=== PATIENT | male | born 1960 | race Two or more races ===

== ENCOUNTER 2023-04-30 14:07 | Inpatient (IN) | payer MEDICARE, OTHER ==
[~2023-04-30] VITALS: Ht 177.8 cm; Wt 91.2 kg
[2023-04-30 15:17] LABS: BASOPHILS # (AUTO) 0.1 K/uL (0.0-0.2); EOSINOPHILS % (AUTO) 0.2 % (0.0-6.0); HEMATOCRIT 37 % (39-51); HEMOGLOBIN 12.3 g/dL (13.5-17.5); LYMPHOCYTES # (AUTO) 1.9 K/uL (0.8-4.8); LYMPHOCYTES % (AUTO) 28.6 % (20.0-44.0); MEAN CORPUSCULAR HEMOGLOBIN 30 PG (26.0-33.0); MEAN CORPUSCULAR HGB CONC 33 g/dl (31.0-36.0); MEAN CORPUSCULAR VOLUME 90 fL (80-96); MONOCYTES # (AUTO) 0.6 K/uL (0.1-1.30); MONOCYTES % (AUTO) 9.1 % (2.0-12.0); NEUTROPHILS % (AUTO) 61.1 % (43.0-81.0); PLATELET COUNT (AUTO) 338 K/uL (150-450); RED CELL DISTRIBUTION WIDTH 13.2 % (11.5-15.0); WHITE BLOOD COUNT (AUTO) 6.5 K/uL (4.3-11.0)
[2023-04-30 15:24] LABS: CALCIUM, SERUM 9.2 mg/dL (8.5-10.1); CARBON DIOXIDE 22 mmol/L (21-32); CHLORIDE 98 mmol/L (98-107); CREATININE 0.8 mg/dL (0.6-1.3); GLUCOSE 129 mg/dL (74-106); POTASSIUM 4.2 mmol/L (3.5-5.1); SODIUM SERUM 134 mmol/L (136-145); UREA NITROGEN, BLOOD 7 mg/dL (7-18)
[2023-04-30 15:29] LABS: ALANINE AMINOTRANSFERASE 25 U/L (12-78); ALBUMIN 3.6 g/dL (3.4-5.0); ALKALINE PHOSPHATASE 129 U/L (46-116); ASPARTATE AMINOTRANSFERASE 22 U/L (15-37); BILIRUBIN,DIRECT 0.1 mg/dL (0.0-0.2); BILIRUBIN,TOTAL 0.2 mg/dL (0.2-1.0); SALICYLATE 3.1 mg/dL (2.8-20.0)
[2023-04-30 15:40] LABS: ACETAMINOPHEN <10 ug/ml (10-30)
[2023-04-30 15:41] LABS: ALCOHOL, BLOOD < 3 mg/dL (0-10)
[2023-04-30 15:46] LABS: AMPHETAMINE, URINE NEGATIVE (NEGATIVE); BARBITURATE, URINE NEGATIVE (NEGATIVE); BENZODIAZEPINE, URINE NEGATIVE (NEGATIVE); CANNABINOID, URINE NEGATIVE (NEGATIVE); COCCAINE, URINE NEGATIVE (NEGATIVE); OPIATE, URINE NEGATIVE (NEGATIVE); PHENCYCLIDINE SCREEN,URINE NEGATIVE (NEGATIVE)
[2023-04-30 16:01] LABS: APPEARANCE,URINE CLEAR (CLEAR); BILIRUBIN,URINE 1+ (NEGATIVE); BLOOD, URINE NEGATIVE Ery/uL (NEGATIVE); COLOR,URINE YELLOW (YELLOW); KETONES,URINE TRACE mg/dL (NEGATIVE); LEUKOCYTE ESTERASE ,URINE NEGATIVE (NEGATIVE); NITRITE, URINE NEGATIVE (NEGATIVE); PROTEIN,URINE 3+ mg/dl (NEGATIVE); UGLUCOSE NEGATIVE (NEGATIVE)
[2023-04-30 16:07] LABS: ADD URINE CULTURE NO; BACTERIA,URINE None seen /HPF (None Seen); MUCUS,URINE Many /LPF (None Seen); RBC,URINE 0-2 /HPF (0-2); SQUAMOUS EPITHELIAL CELL,UR 0-2 /HPF (None Seen)
[2023-04-30] MEDS ORDERED: METF-442 PO (16:18)
[2023-04-30] MEDS ORDERED: DIVA-76 PO (16:18)
[2023-04-30] MEDS ORDERED: OLAN10TA3 PO (16:18)
[2023-04-30] MEDS ORDERED: PIOG15TA8 PO (16:18)
[2023-04-30] MEDS ORDERED: VENL37.55 PO (16:18)
[2023-04-30] MEDS ORDERED: ALLO100T PO (16:18)
[2023-04-30] MEDS ORDERED: LORA-259 PO (16:18)
[2023-04-30] MEDS ORDERED: METO-357 PO (16:18)
[2023-04-30] MEDS ORDERED: NIFE-57 PO (16:18)
[2023-04-30] MEDS ORDERED: ATOR80TA PO (16:18)
[2023-04-30] MEDS ORDERED: PHEN100C4 PO (16:18)
[2023-04-30 18:12] LABS: CHOLESTEROL 159 mg/dL (<200); HDL CHOLESTEROL 47 mg/dL (40-60); LDL 81 mg/dL (0-99); TRIGLYCERIDES 80 mg/dL (30-150)
[2023-04-30 21:30] VITALS: BP 123/78; TEMP 98; O2SAT 98
[2023-04-30] MEDS ORDERED: LORAZEPAM 0.5 MG TABLET PO PRN (21:30)
[2023-04-30] MEDS ORDERED: BLOOD SUGAR DIAGNOSTIC 1 EACH STRIP IN ONE (21:30)
[2023-04-30] MEDS ORDERED: MAG HYDROX/AL HYDROX/SIMETH 30 ML UDC PO PRN (21:30)
[2023-04-30] MEDS ORDERED: MAGNESIUM HYDROXIDE 30 ML UDC PO PRN (21:30)
[2023-04-30] MEDS ORDERED: ACETAMINOPHEN 325 MG TABLET PO PRN (21:30)
[2023-04-30] MEDS ORDERED: ATORVASTATIN 40 MG TABLET PO SCH (22:00)
[2023-04-30] MEDS: TEMAZEPAM 7.5 MG CAPSULE PO PRN (23:01)
[2023-05-01 06:43] LABS: BASOPHILS % (AUTO) 0.4 % (0.0-2.0); EOSINOPHILS # (AUTO) 0.1 K/uL (0.0-0.7); EOSINOPHILS % (AUTO) 1.2 % (0.0-6.0); HEMATOCRIT 37 % (39-51); HEMOGLOBIN 12.3 g/dL (13.5-17.5); LYMPHOCYTES % (AUTO) 41.5 % (20.0-44.0); MEAN CORPUSCULAR HEMOGLOBIN 30 PG (26.0-33.0); MEAN CORPUSCULAR HGB CONC 33 g/dl (31.0-36.0); MEAN CORPUSCULAR VOLUME 91 fL (80-96); MONOCYTES # (AUTO) 0.7 K/uL (0.1-1.30); MONOCYTES % (AUTO) 9.4 % (2.0-12.0); NEUTROPHILS # (AUTO) 3.4 K/uL (1.8-8.9); NEUTROPHILS % (AUTO) 47.5 % (43.0-81.0); PLATELET COUNT (AUTO) 320 K/uL (150-450); RED BLOOD CELL COUNT(AUTO) 4.05 MIL/uL (4.5-6.0); RED CELL DISTRIBUTION WIDTH 13.6 % (11.5-15.0); WHITE BLOOD COUNT (AUTO) 7.2 K/uL (4.3-11.0)
[2023-05-01 07:14] LABS: ALBUMIN 3.3 g/dL (3.4-5.0); BILIRUBIN,TOTAL 0.2 mg/dL (0.2-1.0); CALCIUM, SERUM 9.1 mg/dL (8.5-10.1); CREATININE 0.6 mg/dL (0.6-1.3); POTASSIUM 4.3 mmol/L (3.5-5.1); TOTAL PROTEIN, SERUM 7.7 g/dL (6.4-8.2)
[2023-05-01 08:00] VITALS: BP 138/85; TEMP 97.8; O2SAT 96
[2023-05-01] MEDS: METOPROLOL SUCCINATE 50 MG TAB.SR.24H PO SCH (08:29)
[2023-05-01] MEDS: ALLOPURINOL 100 MG TABLET PO SCH (08:29)
[2023-05-01] MEDS: PIOGLITAZONE HCL 15 MG TABLET PO SCH (08:30)
[2023-05-01] MEDS: PHENYTOIN EXTENDED RELEASE 100 MG CAPSULE PO SCH ×3 (08:30→16:20)
[2023-05-01] MEDS: DIVALPROEX SODIUM 250 MG TABLET.DR PO SCH ×2 (08:30→16:20)
[2023-05-01] MEDS: METFORMIN XR 500 MG TAB.SR.24H PO SCH (08:30)
[2023-05-01] MEDS: NIFEdipine XL (30MG) 30 MG TAB PO SCH (08:30)
[2023-05-01 16:59] VITALS: BP 130/71; TEMP 98.1; O2SAT 98
[2023-05-01 20:00] VITALS: BP 120/73; TEMP 99; O2SAT 96
[2023-05-01] MEDS: OLANZAPINE 10 MG TABLET PO SCH (21:29)
[2023-05-01] MEDS: ATORVASTATIN 40 MG TABLET PO SCH (21:30)
[2023-05-01 21:37] LABS: CREATININE 0.6 mg/dL (0.6-1.3)
[2023-05-01] MEDS: TEMAZEPAM 7.5 MG CAPSULE PO PRN (21:43)
[2023-05-02 08:00] VITALS: BP 117/76; TEMP 98.1; O2SAT 99
[2023-05-02] MEDS: PIOGLITAZONE HCL 15 MG TABLET PO SCH (08:37)
[2023-05-02] MEDS: METFORMIN XR 500 MG TAB.SR.24H PO SCH (08:37)
[2023-05-02] MEDS: DIVALPROEX SODIUM 250 MG TABLET.DR PO SCH ×2 (08:37→16:53)
[2023-05-02] MEDS: NIFEdipine XL (30MG) 30 MG TAB PO SCH (08:37)
[2023-05-02] MEDS: PHENYTOIN EXTENDED RELEASE 100 MG CAPSULE PO SCH ×3 (08:37→16:53)
[2023-05-02] MEDS: ALLOPURINOL 100 MG TABLET PO SCH (08:37)
[2023-05-02] MEDS: METOPROLOL SUCCINATE 50 MG TAB.SR.24H PO SCH (08:38)
[2023-05-02 16:00] VITALS: BP 114/73; TEMP 97.7; O2SAT 95
[2023-05-02] MEDS: OLANZAPINE 10 MG TABLET PO SCH (20:49)
[2023-05-02 20:51] VITALS: BP 123/76; TEMP 98.1; O2SAT 95
[2023-05-02] MEDS: ATORVASTATIN 40 MG TABLET PO SCH (21:02)
[2023-05-02] MEDS: TEMAZEPAM 7.5 MG CAPSULE PO PRN (21:52)
[2023-05-03 08:00] VITALS: BP 111/72; TEMP 98.6; O2SAT 96
[2023-05-03] MEDS: PHENYTOIN EXTENDED RELEASE 100 MG CAPSULE PO SCH ×3 (08:09→16:45)
[2023-05-03] MEDS: ALLOPURINOL 100 MG TABLET PO SCH (08:09)
[2023-05-03] MEDS: METFORMIN XR 500 MG TAB.SR.24H PO SCH (08:09)
[2023-05-03] MEDS: DIVALPROEX SODIUM 250 MG TABLET.DR PO SCH ×2 (08:09→16:45)
[2023-05-03] MEDS: PIOGLITAZONE HCL 15 MG TABLET PO SCH (08:09)
[2023-05-03] MEDS: NIFEdipine XL (30MG) 30 MG TAB PO SCH (08:09)
[2023-05-03] MEDS: METOPROLOL SUCCINATE 50 MG TAB.SR.24H PO SCH (08:10)
[2023-05-03 16:00] VITALS: BP 108/69; TEMP 98; O2SAT 99
[2023-05-03 20:30] VITALS: BP 124/69; TEMP 98.6; O2SAT 97
[2023-05-03] MEDS: ATORVASTATIN 40 MG TABLET PO SCH (21:36)
[2023-05-03] MEDS: OLANZAPINE 10 MG TABLET PO SCH (21:36)
[2023-05-03] MEDS: TEMAZEPAM 7.5 MG CAPSULE PO PRN (21:55)
[2023-05-04 08:00] VITALS: BP 118/76; TEMP 97.9; O2SAT 95
[2023-05-04] MEDS: ALLOPURINOL 100 MG TABLET PO SCH (08:57)
[2023-05-04] MEDS: DIVALPROEX SODIUM 250 MG TABLET.DR PO SCH ×2 (08:57→16:23)
[2023-05-04] MEDS: PHENYTOIN EXTENDED RELEASE 100 MG CAPSULE PO SCH ×3 (08:57→16:23)
[2023-05-04] MEDS: METFORMIN XR 500 MG TAB.SR.24H PO SCH (08:57)
[2023-05-04] MEDS: PIOGLITAZONE HCL 15 MG TABLET PO SCH (08:57)
[2023-05-04] MEDS: NIFEdipine XL (30MG) 30 MG TAB PO SCH (08:58)
[2023-05-04] MEDS: METOPROLOL SUCCINATE 50 MG TAB.SR.24H PO SCH (08:58)
[2023-05-04 16:00] VITALS: BP 125/76; TEMP 98; O2SAT 97
[2023-05-04 21:04] VITALS: BP 113/84; TEMP 98.8; O2SAT 97
[2023-05-04] MEDS: OLANZAPINE 10 MG TABLET PO SCH (21:11)
[2023-05-04] MEDS: ATORVASTATIN 40 MG TABLET PO SCH (21:12)
[2023-05-04] MEDS: TEMAZEPAM 7.5 MG CAPSULE PO PRN (22:25)
[2023-05-05 08:00] VITALS: BP 131/76; TEMP 98.4; O2SAT 97
[2023-05-05] MEDS: PIOGLITAZONE HCL 15 MG TABLET PO SCH (08:07)
[2023-05-05] MEDS: PHENYTOIN EXTENDED RELEASE 100 MG CAPSULE PO SCH ×3 (08:07→16:16)
[2023-05-05] MEDS: ALLOPURINOL 100 MG TABLET PO SCH (08:07)
[2023-05-05] MEDS: METOPROLOL SUCCINATE 50 MG TAB.SR.24H PO SCH (08:07)
[2023-05-05] MEDS: METFORMIN XR 500 MG TAB.SR.24H PO SCH (08:07)
[2023-05-05] MEDS: DIVALPROEX SODIUM 250 MG TABLET.DR PO SCH ×2 (08:07→16:16)
[2023-05-05] MEDS: NIFEdipine XL (30MG) 30 MG TAB PO SCH (08:08)
[2023-05-05 16:00] VITALS: BP 109/76; TEMP 98.2; O2SAT 97
[2023-05-05 20:00] VITALS: BP 112/72; TEMP 98.1; O2SAT 98
[2023-05-05] MEDS: OLANZAPINE 10 MG TABLET PO SCH (21:14)
[2023-05-05] MEDS: ATORVASTATIN 40 MG TABLET PO SCH (21:14)
[2023-05-05] MEDS: TEMAZEPAM 7.5 MG CAPSULE PO PRN (22:13)
[2023-05-06 08:00] VITALS: BP 122/71; TEMP 98.2; O2SAT 98
[2023-05-06] MEDS: PIOGLITAZONE HCL 15 MG TABLET PO SCH (08:16)
[2023-05-06] MEDS: DIVALPROEX SODIUM 250 MG TABLET.DR PO SCH ×2 (08:16→16:22)
[2023-05-06] MEDS: METFORMIN XR 500 MG TAB.SR.24H PO SCH (08:17)
[2023-05-06] MEDS: PHENYTOIN EXTENDED RELEASE 100 MG CAPSULE PO SCH ×3 (08:17→16:22)
[2023-05-06] MEDS: ALLOPURINOL 100 MG TABLET PO SCH (08:17)
[2023-05-06] MEDS: METOPROLOL SUCCINATE 50 MG TAB.SR.24H PO SCH (08:17)
[2023-05-06] MEDS: NIFEdipine XL (30MG) 30 MG TAB PO SCH (08:18)
[2023-05-06 16:00] VITALS: BP 118/84; TEMP 98.4; O2SAT 95
[2023-05-06 21:28] VITALS: BP 121/76; TEMP 98.7; O2SAT 98
[2023-05-06] MEDS: OLANZAPINE 10 MG TABLET PO SCH (21:28)
[2023-05-06] MEDS: ATORVASTATIN 40 MG TABLET PO SCH (21:28)
[2023-05-06] MEDS: TEMAZEPAM 7.5 MG CAPSULE PO PRN (22:21)
[2023-05-07 08:00] VITALS: BP 121/77; TEMP 97.5; O2SAT 98
[2023-05-07] MEDS: PIOGLITAZONE HCL 15 MG TABLET PO SCH (08:02)
[2023-05-07] MEDS: PHENYTOIN EXTENDED RELEASE 100 MG CAPSULE PO SCH ×3 (08:03→16:11)
[2023-05-07] MEDS: DIVALPROEX SODIUM 250 MG TABLET.DR PO SCH ×2 (08:03→16:11)
[2023-05-07] MEDS: METFORMIN XR 500 MG TAB.SR.24H PO SCH (08:03)
[2023-05-07] MEDS: METOPROLOL SUCCINATE 50 MG TAB.SR.24H PO SCH (08:03)
[2023-05-07] MEDS: ALLOPURINOL 100 MG TABLET PO SCH (08:03)
[2023-05-07] MEDS: NIFEdipine XL (30MG) 30 MG TAB PO SCH (08:04)
[2023-05-07 16:00] VITALS: BP 115/75; TEMP 98.4; O2SAT 96
[2023-05-07 20:00] VITALS: BP 117/76; TEMP 98.1; O2SAT 97
[2023-05-07] MEDS: ATORVASTATIN 40 MG TABLET PO SCH (21:08)
[2023-05-07] MEDS: OLANZAPINE 10 MG TABLET PO SCH (21:08)
[2023-05-07] MEDS: TEMAZEPAM 7.5 MG CAPSULE PO PRN (22:26)
[2023-05-08 08:00] VITALS: BP 126/79; TEMP 98.1; O2SAT 96
[2023-05-08] MEDS: METFORMIN XR 500 MG TAB.SR.24H PO SCH (09:12)
[2023-05-08] MEDS: ALLOPURINOL 100 MG TABLET PO SCH (09:12)
[2023-05-08] MEDS: PIOGLITAZONE HCL 15 MG TABLET PO SCH (09:12)
[2023-05-08] MEDS: PHENYTOIN EXTENDED RELEASE 100 MG CAPSULE PO SCH ×3 (09:12→18:02)
[2023-05-08] MEDS: DIVALPROEX SODIUM 250 MG TABLET.DR PO SCH ×2 (09:12→18:02)
[2023-05-08] MEDS: METOPROLOL SUCCINATE 50 MG TAB.SR.24H PO SCH (09:13)
[2023-05-08] MEDS: NIFEdipine XL (30MG) 30 MG TAB PO SCH (09:13)
[2023-05-08 16:00] VITALS: BP 120/72; TEMP 98.4; O2SAT 97
[2023-05-08] MEDS: OLANZAPINE 10 MG TABLET PO SCH (20:42)
[2023-05-08] MEDS: ATORVASTATIN 40 MG TABLET PO SCH (21:03)
[2023-05-08] MEDS: TEMAZEPAM 7.5 MG CAPSULE PO PRN (21:03)
[2023-05-09 08:00] VITALS: BP 121/83; TEMP 99.9; O2SAT 97
[2023-05-09] MEDS: DIVALPROEX SODIUM 250 MG TABLET.DR PO SCH ×2 (08:33→17:26)
[2023-05-09] MEDS: METOPROLOL SUCCINATE 50 MG TAB.SR.24H PO SCH (08:33)
[2023-05-09] MEDS: NIFEdipine XL (30MG) 30 MG TAB PO SCH (08:33)
[2023-05-09] MEDS: METFORMIN XR 500 MG TAB.SR.24H PO SCH (08:34)
[2023-05-09] MEDS: PIOGLITAZONE HCL 15 MG TABLET PO SCH (08:34)
[2023-05-09] MEDS: PHENYTOIN EXTENDED RELEASE 100 MG CAPSULE PO SCH ×3 (08:34→17:26)
[2023-05-09] MEDS: ALLOPURINOL 100 MG TABLET PO SCH (08:34)
[2023-05-09 16:00] VITALS: BP 134/80; TEMP 97.8; O2SAT 98
[2023-05-09 20:27] VITALS: BP 125/79; TEMP 98.8; O2SAT 100
[2023-05-09] MEDS: TEMAZEPAM 7.5 MG CAPSULE PO PRN (21:17)
[2023-05-09] MEDS: OLANZAPINE 10 MG TABLET PO SCH (21:17)
[2023-05-09] MEDS: ATORVASTATIN 40 MG TABLET PO SCH (21:17)
[2023-05-10 08:00] VITALS: BP 128/79; TEMP 97.8; O2SAT 94
[2023-05-10] MEDS: DIVALPROEX SODIUM 250 MG TABLET.DR PO SCH (09:37)
[2023-05-10] MEDS: PHENYTOIN EXTENDED RELEASE 100 MG CAPSULE PO SCH ×2 (09:37→12:29)
[2023-05-10] MEDS: METFORMIN XR 500 MG TAB.SR.24H PO SCH (09:37)
[2023-05-10 09:38] VITALS: BP 128/79
[2023-05-10] MEDS: ALLOPURINOL 100 MG TABLET PO SCH (09:38)
[2023-05-10] MEDS: PIOGLITAZONE HCL 15 MG TABLET PO SCH (09:38)
[2023-05-10] MEDS: METOPROLOL SUCCINATE 50 MG TAB.SR.24H PO SCH (09:38)
[2023-05-10] MEDS: NIFEdipine XL (30MG) 30 MG TAB PO SCH (09:38)
== END 2023-05-10 13:00 | DRG 885 ==
LOC: ER 14:32 → GPS 20:08
PROVIDERS: ADMIT Psychiatry & Neurology Psychosomatic Medicine; ATTEND Nurse Practitioner Acute Care
DX: F25.0 Schizoaffective disorder, bipolar type (principal); E44.1 Mild protein-calorie malnutrition; E78.5 Hyperlipidemia, unspecified; F41.9 Anxiety disorder, unspecified; G31.84 Mild cognitive impairment of uncertain or unknown etiology; I10 Essential (primary) hypertension; E11.9 Type 2 diabetes mellitus without complications; G40.909 Epilepsy, unspecified, not intractable, without status epilepticus; Z79.899 Other long term (current) drug therapy; M10.9 Gout, unspecified; G47.00 Insomnia, unspecified; E66.9 Obesity, unspecified; Z68.28 Body mass index [BMI] 28.0-28.9, adult; F29 Unspecified psychosis not due to a substance or known physiological condition; F32.9 Major depressive disorder, single episode, unspecified; Z79.84 Long term (current) use of oral hypoglycemic drugs; E88.09 Other disorders of plasma-protein metabolism, not elsewhere classified
CPT/HCPCS: 36415; 80048-TC; 80053-TC; 80061-TC; 80076-TC; 81001; 82565-TC; 85025-TC; 87081-TC; G0480